=== PATIENT | female | born 1985 | race Caucasian/White ===

== ENCOUNTER 2018-12-14 03:10 | Outpatient (CLI) | payer BC, SELFPAY ==
[2018-12-14 11:14] LABS: HCT 39.3 % (36.0-46.0); HGB 12.7 g/dL (12.0-15.5); Mean Corp. HGB Concentration 32.3 g/dL (32.0-36.0); Mean Corpuscular Hemoglobin 29.8 pg (27.0-33.0); Mean Corpuscular Volume 92.3 fL (80-95); Mean Platelet Volume 13.8 fL (8.0-11.0); Platelet Count 235 x1000/uL (130-400); RBC 4.26 m/cumm (4.00-5.20); RBC Distribution Width 13.6 % (11.7-14.6); White Blood Cell Count 5.88 k/cumm (4.4-10.8)
[2018-12-14 11:39] LABS: ALT 29 U/L (12-78); AST 18 U/L (15-37); Albumin 4.2 g/dL (3.4-5.0); Alkaline Phosphatase 53 U/L (46-116); Anion Gap 8.7 mmol/L (3-11); BUN 14 mg/dL (7-18); Bilirubin, Total 0.2 mg/dL (0.2-1.0); CO2 28.3 mmol/L (21.0-32.0); CREATININE 0.81 mg/dL (0.55-1.02); Calcium 9.5 mg/dL (8.5-10.1); Calculated LDL 97; Chloride 103 mmol/L (98-107); Cholesterol 200 mg/dL (50-200); Glucose 90 mg/dL (70-100); HDL Cholesterol 95 mg/dL (40-60); Potassium 4.8 mmol/L (3.5-5.1); Sodium 140 mmol/L (136-145); TSH 1.32 uIU/mL (0.358-3.74); Total Protein 7.4 g/dL (6.4-8.2); Triglyceride 43 mg/dL (30-150)
[2018-12-14 11:58] LABS: FREE T4 0.89 ng/dL (0.76-1.46)
[2018-12-17 11:12] LABS: Rubella IgG Ab (UVM) Positive; Varicella IgG Antibody Positive
== END 2018-12-14 03:30 ==
PROVIDERS: PCP Family Medicine; Visit Provider Nurse Practitioner Family
DX: Z00.00 Encounter for general adult medical examination without abnormal findings (principal); Z31.69 Encounter for other general counseling and advice on procreation; Z13.220 Encounter for screening for lipoid disorders; Z13.29 Encounter for screening for other suspected endocrine disorder; Z13.228 Encounter for screening for other metabolic disorders; Z11.59 Encounter for screening for other viral diseases
CPT/HCPCS: 36415; 80053; 80061; 83721; 85027; 86787; 84439; 84443; 86762

== ENCOUNTER 2019-06-17 16:38 | Outpatient (CLI) | payer BC, SELFPAY ==
[2019-06-17 18:49] LABS: HCG Quant, Pregnancy 10 mIU/mL (1-3)
== END 2019-06-17 16:58 ==
PROVIDERS: Nurse Practitioner Family; PCP Family Medicine; Visit Provider Advanced Practice Midwife
DX: Z32.01 Encounter for pregnancy test, result positive (principal); O20.0 Threatened abortion
CPT/HCPCS: 36415; 86850; 86900; 86901; 84702

== ENCOUNTER 2019-06-19 13:13 | Outpatient (CLI) | payer BC, SELFPAY ==
[2019-06-19 16:48] LABS: HCG Quant, Pregnancy 4 mIU/mL (1-3)
== END 2019-06-19 13:33 ==
PROVIDERS: Nurse Practitioner; PCP Family Medicine; Visit Provider Family Medicine
DX: Z34.91 Encounter for supervision of normal pregnancy, unspecified, first trimester (principal)
CPT/HCPCS: 36415; 84702

== ENCOUNTER 2019-08-12 15:39 | Outpatient (CLI) | payer BC, SELFPAY | END 2019-08-12 15:59 | PROVIDERS: PCP Family Medicine; Visit Provider Obstetrics & Gynecology Gynecology | DX: Z32.01 Encounter for pregnancy test, result positive (principal) | CPT/HCPCS: 36415; 84702 ==

== ENCOUNTER 2019-09-09 11:27 | Outpatient (CLI) | payer BC, SELFPAY ==
[2019-09-09 12:44] LABS: Abs Immature Grans 0.02 k/cumm (0.0-0.09); Absolute Basophil Count 0.05 k/cumm (0.0-0.2); Absolute Lymphocyte Count 2.01 k/cumm (1.2-3.4); Absolute Monocyte Count 0.76 k/cumm (0.11-0.7); Basophils % 0.6; Eosinophils % 1.2; HCT 33.8 % (36.0-46.0); HGB 11.5 g/dL (12.0-15.5); Immature Grans % 0.2 %; Lymphocytes % 23.8; Mean Corpuscular Hemoglobin 29.9 pg (27.0-33.0); Mean Platelet Volume 12.2 fL (8.0-11.0); Neutrophils % 65.2; Platelet Count 287 x1000/uL (130-400); RBC 3.84 m/cumm (4.00-5.20); RBC Distribution Width 12.5 % (11.7-14.6); White Blood Cell Count 8.44 k/cumm (4.4-10.8)
[2019-09-09 13:41] LABS: TSH (W/Ref FT4) 1.12 uIU/mL (0.36-3.74)
[2019-09-10 09:56] LABS: Hepatitis B Surface Ag Negative (Negative)
[2019-09-10 10:36] LABS: Varicella IgG Antibody Positive (See Note)
[2019-09-10 10:39] LABS: Rubella IgG Ab (UVM) Positive (See Note)
[2019-09-10 10:41] LABS: Hepatitis C Ab w Rflx HCV PCR Negative (Negative)
[2019-09-10 11:08] LABS: HIV-1/2 Ag & Ab Screen Negative (Negative)
[2019-09-10 14:44] LABS: Syphilis Total Ab w/Reflex Nonreactive (Nonreactive)
== END 2019-09-09 11:47 ==
PROVIDERS: PCP Family Medicine; Visit Provider Advanced Practice Midwife
DX: Z34.91 Encounter for supervision of normal pregnancy, unspecified, first trimester (principal); Z11.4 Encounter for screening for human immunodeficiency virus [HIV]; Z11.59 Encounter for screening for other viral diseases; Z01.84 Encounter for antibody response examination
CPT/HCPCS: 36415; 86787; 86803; 86850; 86900; 86901; 87340; 87389; 84443; 85025; 86762; 86780

== ENCOUNTER 2019-09-09 11:53 | Outpatient (REF) | payer BC, SELFPAY ==
--- NOTE | 2019-09-09 10:15 | PAPFT_PTH ---
PATIENT: Christine Mckenzie LOC: [facility] U#:[id number] AGE/SX: 34/F ROOM: RE09/09/[address]: Santiago Parker RN : 1985 BED: DIS: 09/09/2019 SPEC #: [id number] RECD: 09/09/19 13:01 STATUS: LAVONLiane ARELLANO #: [id number] ANGEL: 09/09/19 10:[address]: Santiago Parker DEPT: [facility] Cytology RECD BY: Francheska Henley ENTERED: 09/09/19 13:02 SP TYPE: PAPFT OTHR DR: Deidra Urena MD Tissues: 1 - CX/ENDOCX FOR PAP SMEARS Procedures: PAP THIN PREP/[facility] Screening HPV DNA PROBE Comments: [id number]
[2019-09-09 14:49] LABS: *AMPHETAMINES SCREEN URINE Negative (Negative); *BARBITURATES SCREEN URINE Negative (Negative); *BENZODIAZEPINES SCREEN URINE Negative (Negative); Cannabinoids THC Negative (Negative); Cocaine Screen,Urine Negative (Negative); METHADONE URINE SCREEN Negative (Negative); OPIATES URINE SCREEN Negative (Negative)
[2019-09-09 14:59] LABS: Tricyclic Antidepressants Negative (Negative)
[2019-09-11 13:06] LABS: Chlamydia Result Negative (Negative); GC Result Negative (Negative)
[2019-09-12 10:04] LABS: Buprenorphine Negative; Norbuprenorphine Negative
== END 2019-09-09 12:13 ==
LOC: LBN 11:53
PROVIDERS: PCP Family Medicine; Visit Provider Advanced Practice Midwife
DX: Z34.91 Encounter for supervision of normal pregnancy, unspecified, first trimester (principal); Z11.3 Encounter for screening for infections with a predominantly sexual mode of transmission; Z12.4 Encounter for screening for malignant neoplasm of cervix; Z11.51 Encounter for screening for human papillomavirus (HPV)
CPT/HCPCS: 80307; 87077; 87491; 87591; 88142; 87086; 87186; 87624

== ENCOUNTER 2019-10-21 01:47 | Outpatient (CLI) | payer BC, SELFPAY ==
--- NOTE | 2019-10-21 07:15 | DI.US_ITS ---
EXAM: US OB 2-3 TRIMESTER CLINICAL HISTORY: 18 wk anatomy survey,Z34.90. TECHNIQUE: Transabdominal obstetrical ultrasound performed. COMPARISON: No exams were available for comparison FINDINGS: Transabdominal obstetrical ultrasound performed. FINDINGS: Number of fetuses: One. position: Variable. heart rate: 141 bpm. Placental grade: 0 Placental location: Anterior. No evidence of previa. BIOMETRIC DATA: BPD: 39 millimeters 17+ 6 weeks HC: 156 millimeters 18+ 4 weeks AC: 133 millimeters 18+ 5 weeks FL: 27 millimeters 18+ 1 weeks Cisterna Magna: 4.2 millimeters Cerebellum: 1.8 millimeters EFW: !Error grms !Error% Composite Age: 18+ 2 weeks EDC by US: 21 March 2020 Amount of fluid is within normal limits. ANATOMICAL SURVEY: Four-chambered heart: Unremarkable. LVOT: Unremarkable. RVOT: Unremarkable. Left-sided stomach: Unremarkable. urinary bladder: Unremarkable. Bilateral kidneys: Unremarkable. Three-vessel cord: Unremarkable. Cord insertion: Unremarkable. Umbilical artery velocity: Unremarkable. Posterior fossa:Unremarkable. ventricles: Unremarkable. nose: Unremarkable. lips: Unremarkable. palate: Unremarkable. spine: Unremarkable. Two arms and two legs: Unremarkable. IMPRESSION: 1. Single live intrauterine gestation as above. 2. Normal anatomic survey. DATA REPOSITORY:
== END 2019-10-21 02:07 ==
PROVIDERS: PCP Family Medicine; Visit Provider Advanced Practice Midwife
DX: Z34.92 Encounter for supervision of normal pregnancy, unspecified, second trimester (principal); Z3A.18 18 weeks gestation of pregnancy
CPT/HCPCS: 76805

== ENCOUNTER 2019-10-21 02:45 | Outpatient (CLI) | payer BC, SELFPAY ==
[2019-10-23 22:51] LABS: AFP 56.8 ng/mL; Calculated age at EDD 32 years; Cigarette smoking status non-Smoker; GA used in risk estimate Dates estimate; IVF Pregnancy No; Initial or repeat testing Initial testing; Insulin dependent diabetes No; Maternal Weight 119 lbs; Number of Fetuses 1; Physician Phone Number 802-748-7300; Prev Pregnancy w/NTD No; RECOMMENDED FOLLOW UP None.; Results Summary Normal risk
[2019-10-28 11:50] LABS: Specimen WB Whole Blood
[2019-10-29 01:19] LABS: Result Summary NEGATIVE; Specimen WB Whole Blood
== END 2019-10-21 03:05 ==
PROVIDERS: Advanced Practice Midwife; PCP Family Medicine; Visit Provider Advanced Practice Midwife
DX: Z34.92 Encounter for supervision of normal pregnancy, unspecified, second trimester (principal); Z36.89 Encounter for other specified antenatal screening
CPT/HCPCS: 36415; 81329; 81220; 82105

== ENCOUNTER 2020-01-01 02:20 | Outpatient (CLI) | payer BC, SELFPAY ==
[2020-01-01 10:48] LABS: Glucose,1 Hr (Glucola) 146 mg/dL (80-140)
[2020-01-01 10:51] LABS: HCT 32.4 % (36.0-46.0); HGB 10.9 g/dL (12.0-15.5); Mean Corp. HGB Concentration 33.6 g/dL (32.0-36.0); Mean Corpuscular Hemoglobin 32.1 pg (27.0-33.0); Mean Corpuscular Volume 95.3 fL (80-95); Mean Platelet Volume 11.6 fL (8.0-11.0); Platelet Count 220 x1000/uL (130-400)
== END 2020-01-01 02:40 ==
PROVIDERS: PCP Nurse Practitioner Family; Visit Provider Advanced Practice Midwife
DX: Z34.93 Encounter for supervision of normal pregnancy, unspecified, third trimester (principal); Z3A.28 28 weeks gestation of pregnancy
CPT/HCPCS: 36415; 82950; 85027

== ENCOUNTER 2020-01-13 07:56 | Outpatient (CLI) | payer BC, SELFPAY ==
[2020-01-16 07:49] LABS: SARS-CoV-2 RNA Undetected (Undetected); SARS-CoV-2 Specimen Source Nasopharynx
== END 2020-01-13 08:16 ==
PROVIDERS: PCP Nurse Practitioner Family; Visit Provider Advanced Practice Midwife
DX: Z11.59 Encounter for screening for other viral diseases (principal)
CPT/HCPCS: U0003

== ENCOUNTER 2020-01-17 03:18 | Outpatient (CLI) | payer BC, SELFPAY ==
[2020-01-17 09:08] LABS: Glucose 1 Hour 126 mg/dL
[2020-01-17 11:05] LABS: Glucose 3 Hour 98 mg/dL
== END 2020-01-17 03:38 ==
PROVIDERS: Advanced Practice Midwife; PCP Nurse Practitioner Family; Visit Provider Obstetrics & Gynecology
DX: Z34.93 Encounter for supervision of normal pregnancy, unspecified, third trimester (principal)
CPT/HCPCS: 36415; 82951

== ENCOUNTER 2020-02-27 20:49 | Outpatient (REF) | payer BC, SELFPAY ==
[2020-02-27 13:58] LABS: *AMPHETAMINES SCREEN URINE Negative (Negative); *BARBITURATES SCREEN URINE Negative (Negative); *BENZODIAZEPINES SCREEN URINE Negative (Negative); Cannabinoids THC Negative (Negative); Cocaine Screen,Urine Negative (Negative); METHADONE URINE SCREEN Negative (Negative); OPIATES URINE SCREEN Negative (Negative)
[2020-02-27 13:59] LABS: Tricyclic Antidepressants Negative (Negative)
[2020-03-05 12:14] LABS: Buprenorphine Negative
== END 2020-02-27 21:09 ==
LOC: LBN 20:49
PROVIDERS: PCP Nurse Practitioner Family; Visit Provider Advanced Practice Midwife
DX: Z34.90 Encounter for supervision of normal pregnancy, unspecified, unspecified trimester (principal)
CPT/HCPCS: 80307; 87081

== ENCOUNTER 2020-03-19 07:25 | Inpatient (IN) | payer BC, SELFPAY ==
[2020-03-19 07:42] LABS: HCT 36.9 % (36.0-46.0); HGB 12.7 g/dL (11.2-15.7); RBC 3.97 10^6/uL (3.93-5.22); WBC 12.32 10^3/uL (4.4-10.8)
[2020-03-19 07:43] LABS: MCHC 34.4 % (32.0-36.0); MCV 92.9 fL (80-95); MPV 12.4 fL (8.0-11.0); Platelet Count 195 10^3/uL (130-400); RDW 13.1 % (11.7-14.6)
[2020-03-19] MEDS: Lidocaine 1% Multi-Dose 20 ML VIAL IJ (08:53)
[2020-03-19] MEDS: Oxytocin 10 UNITS/ML VIAL IM (09:04)
[2020-03-19] MEDS: miSOPROStol 200 MCG TAB 400 MCG SL (09:16)
[2020-03-19] MEDS: Oxytocin/Normal Saline 30 UNITS/500 ML BAG 167 UNITS IV (09:20)
[2020-03-19] MEDS: Hamamelis Leaf/Glycerin 100 EACH BOX PR (12:33)
[2020-03-19] MEDS: Acetaminophen 325 MG TAB 650 MG PO ×2 (12:47→17:03)
[2020-03-19] MEDS: Docusate Sodium 100 MG CAP PO (12:50)
[2020-03-19 13:11] LABS: COVID-19 RT-PCR UVMMC Result Negative (Negative)
[2020-03-19] MEDS: Ibuprofen 600 MG TAB PO (17:04)
[2020-03-20] MEDS: Acetaminophen 325 MG TAB 650 MG PO (01:58)
[2020-03-20] MEDS: Ibuprofen 600 MG TAB PO (01:58)
[2020-03-20 07:20] LABS: HCT 29.3 % (36.0-46.0); MCH 32.2 pg (27.0-33.0); MCHC 34.1 % (32.0-36.0); MCV 94.2 fL (80-95); MPV 11.6 fL (8.0-11.0); Platelet Count 171 10^3/uL (130-400); RBC 3.11 10^6/uL (3.93-5.22); RDW 13.2 % (11.7-14.6); RDW-SD 45.5 fL; WBC 15.09 10^3/uL (4.4-10.8)
== END 2020-03-20 17:40 | disposition home or self-care (01) | DRG 807 ==
PROVIDERS: Admitting Provider Advanced Practice Midwife; PCP Nurse Practitioner Family; Visit Provider Advanced Practice Midwife
DX: O72.1 Other immediate postpartum hemorrhage (principal); Z37.0 Single live birth; Z3A.39 39 weeks gestation of pregnancy; O90.81 Anemia of the puerperium; D64.89 Other specified anemias; Z67.30 Type AB blood, Rh positive; Z11.59 Encounter for screening for other viral diseases
CPT/HCPCS: 36415; 85027; 86850; 86900; 86901; U0003; G0378; J2590

== ENCOUNTER 2024-02-09 10:06 | Outpatient (CLI) | payer BC, SELFPAY ==
[2024-02-09 12:24] LABS: HCT 38.1 % (36.0-46.0); HGB 12.4 g/dL (11.2-15.7); MCH 30.2 pg (27.0-33.0); MCHC 32.5 % (32.0-36.0); MCV 93 fL (80-95); MPV 12.6 fL (8.0-11.0); Platelet Count 258 10^3/uL (130-400); RBC 4.11 10^6/uL (3.93-5.22); RDW 12.7 % (11.7-14.6); RDW-SD 43.1 fL; WBC 6.41 10^3/uL (4.4-10.8)
[2024-02-09 12:38] LABS: Anion Gap 7.8 mmol/L (3-11); BUN 16 mg/dL (7-18); CO2 29.2 mmol/L (21.0-32.0); CREATININE 0.9 mg/dL (0.55-1.02); Calcium 9.5 mg/dL (8.5-10.1); Calculated LDL 111 mg/dL (<100); Chloride 104 mmol/L (98-107); Cholesterol 215 mg/dL (<200); Estimated GFR 84.97 (mL/min/1.73m2); Glucose 90 mg/dL (74-106); HDL Cholesterol 95 mg/dL (40-60); Potassium 3.7 mmol/L (3.5-5.1); Sodium 141 mmol/L (136-145); Triglyceride 45 mg/dL (<150)
[2024-02-09 12:43] LABS: Hemoglobin A1C 5.3 % (<5.7)
[2024-02-09 18:59] LABS: HBs Antibody, Quant 107.6 mIU/mL (See Note); Hep B Surface Ab Positive (See Note); Hepatitis B Core Antibody Negative (Negative); Hepatitis B Surface Antigen Negative (Negative)
== END 2024-02-09 10:07 | disposition home or self-care (01) ==
LOC: LOS 10:06
PROVIDERS: PCP Nurse Practitioner Family; Referring Provider Nurse Practitioner Family; Visit Provider Nurse Practitioner Family
DX: Z00.00 Encounter for general adult medical examination without abnormal findings (principal); Z11.59 Encounter for screening for other viral diseases; Z91.89 Other specified personal risk factors, not elsewhere classified; N81.89 Other female genital prolapse; F90.9 Attention-deficit hyperactivity disorder, unspecified type
CPT/HCPCS: 36415; 80048; 80061; 85027; 86704; 86706; 87340; 83036